=== PATIENT | female | born 2000 | race Caucasian/White ===

== ENCOUNTER 2020-11-01 12:23 | Emergency (ER) | payer MEDICAID ==
[~2020-11-01] VITALS: Ht 165.1 cm; Wt 55.5 kg
--- NOTE | 2020-11-01 13:40 | NUR ---
Pt walked back from lobby to room at this time. Pt steady upon ambulation. No apparent distress noted at this time. Resp even and unlabored. Pt able to speak in full 7-10 word sentences at this time. Pt AO x 4. Skin pink, warm and dry. Pt aware we are waiting for ERMD eval. Call light within reach. Will cont to monitor pt.
--- NOTE | 2020-11-01 14:30 | NUR ---
MANJULA Pedraza at bedside for recheck/explanation of results.
[2020-11-01 15:07] VITALS: BP 124/85
== END 2020-11-01 15:13 | disposition home or self-care (01) ==
LOC: ED 14:30
DX: U07.1 COVID-19 (principal); B34.9 Viral infection, unspecified; R06.02 Shortness of breath; R94.31 Abnormal electrocardiogram [ECG] [EKG]
CPT/HCPCS: 71045; 93005; 99285; U0003; U0005